=== PATIENT | male | born 1950 | race Caucasian/White ===

== ENCOUNTER 2019-12-29 09:14 | Outpatient (CLI) | payer OTHER, SELFPAY ==
--- NOTE | ~2019-12-29 | XR_ITS ---
EXAMINATION: XR shoulder LT min 2V DATE: 12/29/2019 09:49 INDICATION: Left shoulder pain TECHNIQUE: AP internally and externally rotated, AP oblique externally rotated and axillary views of the left shoulder were obtained. COMPARISON: None FINDINGS: Normal alignment. No fracture.Mild glenohumeral osteoarthritis with inferior predominant nonuniform joint space narrowing and small to moderate size marginal osteophytes along the posterior and inferio r glenoid. Mild acromioclavicular osteoarthritis. Soft tissues are unremarkable. Visualized portion o f the lungs are clear. IMPRESSION: Mild acromioclavicular and glenohumeral osteoarthritis. Reviewed, dictated and finalized at location A.
--- NOTE | ~2019-12-29 | XR_ITS ---
EXAMINATION: XR elbow LT min 3V DATE: 12/29/2019 09:49 INDICATION: Left elbow pain TECHNIQUE: Anteroposterior, two oblique and lateral views of the left elbow were obtained. COMPARISON: None. FINDINGS: Alignment is normal. No fracture or joint effusion. Mild nonuniform joint space narrowing along the u lnotrochlear articulation. Small marginal osteophytes along the radius and ulna. Small enthesophytes at the medial and lateral epicondyles. Soft tissues are unremarkable. IMPRESSION: 1. Mild osteoarthritis at the left elbow. No joint effusion or acute osseous abnormality. Reviewed, dictated and finalized at location A. IMPRESSION: 1. Mild osteoarthritis at the left elbow. No joint effusion or acute osseous ab normality.
== END 2019-12-29 09:15 | disposition home or self-care (01) ==
PROVIDERS: PCP Nurse Practitioner; Visit Provider Nurse Practitioner
DX: M25.522 Pain in left elbow (principal); M25.512 Pain in left shoulder; M19.012 Primary osteoarthritis, left shoulder; M19.022 Primary osteoarthritis, left elbow
CPT/HCPCS: 73030; 73080

== ENCOUNTER 2020-01-07 14:43 | Inpatient (IN) | payer OTHER, SELFPAY ==
--- NOTE | ~2020-01-07 | CT_ITS ---
EXAMINATION: CT abdomen pelvis wo/w con DATE: 01/07/2020 16:31 INDICATION: Hematuria. Dysuria. TECHNIQUE: Computed tomography (CT) of the abdomen and pelvis was performed without and with intraven ous contrast using a total of 130 mL Omnipaque-350 intravenous contrast with a double-bolus technique for simultaneous opacification of the renal parenchyma and renal collecting system. Automated exposu re control and iterative reconstruction technique were employed. The dose-length product was 2413.99 mGy-cm. COMPARISON: Chest CT 03/08/2017, abdomen MRI 04/26/17 FINDINGS: The visualized portions of the lung bases demonstrate widespread reticular opacities and honeycombing , consistent with chronic interstitial lung disease in a pattern of usual interstitial pneumonia (UIP ). Calcified right lung nodules are consistent with old granulomatous disease. No pleural effusion. T he heart size is normal. There are coronary artery calcifications. No pericardial effusion. There is a 1.8 x 1.9 cm right pericardial lymph node. Partially visualized is mediastinal lymphadenopathy with invasion of the superior vena cava. The liver and spleen are normal. There are gallstones in the gal lbladder, which is normal in size. The pancreas and adrenal glands are normal. There is a 3.1 cm hemo rrhagic cyst with thin peripheral calcifications in right kidney. There is a 5.1 cm lobulated mass wi th areas of calcification in right kidney that is indeterminate for contrast enhancement on this CT, but was nonenhancing on the prior MRI, likely benign. There is a 1.9 cm hemorrhagic cyst in left kidn ey. There are areas of hypoenhancement in left kidney, consistent with pyelonephritis. There is mild bilateral hydronephrosis and hydroureter. The ureters are not well opacified distally. The bladder is markedly distended. There is gas in the bladder lumen. No visible fistula. There is gas in the bladd er wall (emphysematous cystitis). The prostate is severely enlarged. There are no dilated loops of cole wel. The appendix is normal. There are no pathologically enlarged lymph nodes. There is no free intra peritoneal fluid. 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 There is mild thoracic sp ondylosis and severe lower lumbar spondylosis. IMPRESSION: 1. Partially visualized mediastinal lymphadenopathy suspicious for metastatic disease. Chest CT is re commended. I called this result to Dr. Hunter on 01/07/20 at 4:54 PM. 2. Markedly distended bladder with emphysematous cystitis. 3. Left-sided pyelonephritis. Mild bilateral hydronephrosis and hydroureter. 4. Severely enlarged prostate. 5. Severe chronic interstitial lung disease in a pattern of usual interstitial pneumonia (UIP). Reviewed, dictated and finalized at location A. NTEER FIREFIGHTER IMPRESSION: 1. Partially visualized mediastinal lymphadenopathy suspicious for metastatic d isease. Chest CT is recommended. I called this result to Dr. Hunter on 01/07/20 at 4:54 PM. 2. Markedly distended bladder with emphysematous cystitis. 3. Left-sided pyelonephritis. Mild bilateral hydronephrosis and hydroureter. 4. Severely enlarged prostate. 5. Severe chronic interstitial lung disease in a pattern of usual interstitial pneumonia (UIP).
--- NOTE | ~2020-01-07 | CT_ITS ---
EXAMINATION: CT chest w con DATE: 01/08/2020 09:39 INDICATION: Mediastinal lymphadenopathy seen on abdominal CT TECHNIQUE: Transaxial computed tomographic images of the chest were obtained after the administration of 75 cc of Omnipaque 350 intravenous contrast. The dose-length product (DLP) was 395.44 mGy-cm. Ite rative reconstruction was used. COMPARISON: 03/08/2017, 01/07/2020 FINDINGS: There is a 2.5 x 2.1 cm cavitary nodule of the right upper lobe. There is an 8.8 x 8.3 cm c onglomerate of right paratracheal lymph nodes which anteriorly displaces the superior vena cava and m edially displaces the trachea and aortic arch. Additional smaller prevascular, subcarinal, and right hilar lymphadenopathy is noted. Again noted are widespread subpleural reticular and groundglass opaci ties with multiple areas of associated honeycombing and calcified right lower lobe nodule is consiste nt with old granulomatous disease. There is no pleural effusion or pneumothorax. The heart size is no rmal. There is calcified coronary artery atherosclerosis. Lesions of the kidneys are described on the comparison CT. There is worsening of a T1 compression fracture since the comparison chest CT. IMPRESSION: 1. Cavitary right upper lobe nodule consistent with primary bronchogenic carcinoma. 2. Right hilar and mediastinal lymphadenopathy is consistent with metastatic disease. 3. Severe chronic interstitial lung disease in a pattern of usual interstitial pneumonia (UIP). Reviewed, dictated and finalized at location A. STMENT ADVISOR IMPRESSION: 1. Cavitary right upper lobe nodule consistent with primary bronchogenic carcin joce. 2. Right hilar and mediastinal lymphadenopathy is consistent with metastatic di sease. 3. Severe chronic interstitial lung disease in a pattern of usual interstitial pneumonia (UIP).
[2020-01-07 14:45] VITALS: BP 140/89; PULSE 134; RESP 16; TEMP 36.6; O2SAT 98
--- NOTE | 2020-01-07 15:05 | ECG_ITS ---
Measurements Intervals [place] Rate: 131 P: OK: 0 QRS: -28 QRSD: 143 T: -5 QT: 326 QTc: 481 Interpretive Statements ATRIAL FLUTTER/TACHYCARDIA WITH RAPID VENTRICULAR RESPONSE RIGHT BUNDLE BRANCH BLOCK ST-T WAVE ABNORMALITY IN ANTEROLATERAL LEADS- CONSIDER ISCHEMIA ABNORMAL ECG Electronically Signed On 01-07-2020 15:21:34 PRECISION LENS TECHNICIAN by Edu Lawson D.O.
--- NOTE | 2020-01-07 15:10 | ED.GENADULT ---
HPI - General Adult General Chief complaint: Urogenital-Male Stated complaint: hematuria Time Seen by Provider: 01/07/20 15:04 Source: patient History of Present Illness HPI narrative: Patient is a 69 y/o male complaining of moderate bloody urine for 2 days. There is no alleviating or exacerbating factor. He also has pain with urination. He denies any fever, chills or flank pain. He states that he is not on anticoagulation. Related Data Home Medications Medication Instructions Recorded Confirmed aspirin 81 mg tablet,delayed 81 mg PO DAILY 05/14/19 12/24/19 release multivitamin 1 tablet PO DAILY 05/14/19 12/24/19 terbinafine HCl mg 01/07/20 01/07/20 Allergies Allergy/AdvReac Type Severity Reaction Status Date / Time No Known Allergies Allergy Unknown Verified 07/08/17 08:25 varenicline Allergy Unknown unknown Verified 11/14/19 10:42 Review of Systems Constitutional: Constitutional: Denies chills, Denies fever(s), Denies headache(s) and Denies weakness Eyes: Eyes: Denies blurry vision ENT: Denies headache(s) and Denies neck pain Cardiovascular: Cardiovascular: Denies chest pain and Denies dyspnea Respiratory: Respiratory: Denies cough and Denies dyspnea Gastrointestinal: Gastrointestinal: Denies abdominal pain, Denies diarrhea, Denies nausea and Denies vomiting Genitourinary: Genitourinary: Reports hematuria and Reports dysuria Musculoskeletal: Musculoskeletal: Denies back pain and Denies neck pain Neurologic: Denies headache(s) and Denies weakness [facility] Past Medical History Medical History (Updated 01/07/20 @ 20:41 by Leanne Hunter MD) Cigarette nicotine dependence with nicotine-induced disorder HLD (hyperlipidemia) HTN (hypertension) Idiopathic pulmonary fibrosis ILD (interstitial lung disease) Type 2 diabetes mellitus Social History Social History Years smoked: 48 Smoking status: Current some day smoker Tobacco type: cigarettes Second hand tobacco smoke exposure: No Alcohol intake: unknown Substance use: never Gender identity (if verbalized by the patient): Male Exam Const: General: no acute distress and well developed Orientation/consciousness: oriented to person, oriented to place, oriented to time and patient oriented x3 HENMT: Head: normocephalic Ears: external ears normal General nose exam: Normal external nose present Eyes: General: appearance normal, both eyes and all related structures Conjunctivae: conjunctivae normal Neck: Neck: normal visual inspection and full ROM Chest: Chest palpation & inspection: normal inspection of the chest and no tenderness Resp: Effort & Inspection: normal respiratory effort Auscultation: clear to auscultation bilaterally Cardio: Rate: regular rate Rhythm: regular rhythm GI: GI Palp: No abdominal tenderness and Yes Soft to palpation Skin: General skin exam: normal color and turgor normal Neuro: General: oriented to person, oriented to place, oriented to time and patient oriented x3 Cognition (Neuro): normal cognition Extrem: General: normal to inspection, full ROM and no pedal edema Psych: Appearance: grossly normal Mental Status: mental status grossly normal Affect: normal affect Course Consultations Consultation #1: Discussed with Dr. Coello, who recommends Floyd placement and he will consult. Date: 01/07/20 Time: 18:04 Consultation #2: Discussed with JAMAR Ramirez, who agrees to admit. Date: 01/07/20 Time: 18:25 Vital Signs Vital signs: Vital Signs Temperature 36.6 C 01/07/20 14:45 Pulse Rate 134 H 01/07/20 14:45 Respiratory Rate 16 01/07/20 14:45 Blood Pressure 140/89 01/07/20 14:45 Pulse Oximetry 98 01/07/20 14:45 Temperature 36.7 C 01/07/20 18:40 Pulse Rate 110 H 01/07/20 18:40 Respiratory Rate 24 H 01/07/20 18:40 Blood Pressure 132/81 01/07/20 18:40 Pulse Oximetry 99 01/07/20 18:40 Medical Decision Making Vit
[2020-01-07 15:28] LABS: Basophils Percent Auto 0.2 % (0.2-1.2); Eosinophils Absolute Auto 0.1 K/mm3 (0-0.3); Eosinophils Percent Auto 0.3 % (0-4.4); Hematocrit 43.6 % (42.0-52.0); Hemoglobin 13.9 g/dL (14.0-18.0); Immature Granulocyte Absolute 0.08 K/mm3 (0.00-0.031); Immature Granulocyte Percent A 0.5 % (0-0.5); Lymphocytes Percent Auto 7.3 % (18.3-44.2); Mean Corpuscular HGB Conc 31.9 g/dl (32-36); Mean Corpuscular Hemoglobin 28.8 pg (26-34); Mean Corpuscular Volume 90.5 fl (80-100); Mean Platelet Volume 10.5 fl (7.4-10.4); Monocytes Absolute Auto 1.1 K/mm3 (0.1-0.6); Monocytes Percent Auto 6.5 % (2.6-8.5); Neutrophils Absolute Auto 13.9 K/mm3 (1.3-6.7); Neutrophils Percent Auto 85.2 % (45.5-73.1); Platelet Count Result 269 k/mm3 (150-375); Red Blood Count 4.82 M/mm3 (4.6-6.20); Red Cell Distribution Width 15.4 % (11.5-14.5); White Blood Count 16.4 K/mm3 (4.5-10.0)
[2020-01-07 15:40] LABS: Alanine Aminotransferase 19 U/L (4-50); Albumin Level 4.4 g/dL (3.5-5.1); Alkaline Phosphatase 96 U/L (38-126); Anion Gap 13 mmol/L (8-16); Aspartate Amino Transferase 23 U/L (17-59); Bilirubin,Total 0.8 mg/dL (0.2-1.3); Blood Urea Nitrogen 25 mg/dL (9-20); Calcium 10.2 mg/dL (8.4-10.2); Carbon Dioxide 27 mmol/L (22-30); Chloride 97 mmol/L (98-107); Estimated CRCL calculation 63 ml/min; Estimated Glomerular Filt Rate > 60; Glucose 266 mg/dL (75-110); Potassium 3.8 mmol/L (3.4-5.0); Sodium 137 mmol/L (137-145)
[2020-01-07 15:42] LABS: Add Urine Microscopic? YES; Appearance Urine Cloudy (Clear); Bilirubin Urine Negative (Negative); Blood Urine 3+ (Negative); Color Urine Yellow (Yellow); Glucose Urine UA Negative (Negative); Ketones Urine Trace mg/dL (Negative); Leukocyte Esterase Ur 1+ LEU/UL (Negative); Nitrate Urine Negative (Negative); Protein Urine 2+ mg/dL (Negative); RBC Urine >75 /hpf (0-2); Specific Grav Ur 1.023 (1.001-1.035); Squamous Epithelial Cell Urine Many /hpf (Few); Urobilinogen Urine Negative mg/dL (<2.0); WBC Clumps Urine Present /HPF; WBC Urine >75 /hpf
--- NOTE | 2020-01-07 15:45 | PC.NURSE ---
called chem for pt inr ptt 155
[2020-01-07 16:20] LABS: INR 1.1; Prothrombin Time 14.8 Seconds (11.1-14.7)
[2020-01-07 16:21] LABS: Partial Thromboplastin Time 36.4 SECONDS (22.3-36.8)
--- NOTE | 2020-01-07 16:35 | PC.NURSE ---
called lab to add on Trop Baseline [id number]
[2020-01-07 16:53] VITALS: BP 108/94; PULSE 109; RESP 20; O2SAT 99
--- NOTE | 2020-01-07 16:57 | ECG_ITS ---
Measurements Intervals [place] Rate: 120 P: 58 VT: 160 QRS: -25 QRSD: 145 T: 5 QT: 324 QTc: 458 Interpretive Statements SINUS OR ECTOPIC ATRIAL TACHYCARDIA RIGHT BUNDLE BRANCH BLOCK ST-T WAVE ABNORMALITY IN ANTEROLATERAL LEADS- CONSIDER ISCHEMIA BASELINE ARTIFACT- I ,II, AVR, AVL, AVF ABNORMAL ECG Electronically Signed On 01-08-2020 14:12:02 DIVERSIFIED CROPS FARMWORKER by Edu Lawson D.O.
[2020-01-07 16:59] LABS: Troponin I < 0.012 ng/mL (0.000-0.034)
[2020-01-07 18:08] LABS: Lactic Acid Reflex 5.1 mmol/L (0.7-2.1)
[2020-01-07 18:40] VITALS: BP 132/81; PULSE 110; RESP 24; TEMP 36.7; O2SAT 99
[2020-01-07 19:45] LABS: Troponin I < 0.012 ng/mL (0.000-0.034)
[2020-01-07 20:00] VITALS: BP 138/74; PULSE 106; RESP 20; TEMP 37.1; O2SAT 92; BMI 24.3
[2020-01-07 20:48] LABS: Reflex Lactic Acid Yes or No Add Lactic
--- NOTE | 2020-01-07 21:11 | ADMGEN ---
This patient, Andrea Neves Jean-Pierre, was admitted to 2 Medical Room 240-. Patient/family oriented to hospital policies and general routines including ID bracelet, bed and alarms, visiting hours, pain management, procedures, bathroom and other care routines, personal items, smoking policy, room service/diet, and visiting hours. Information on how to activate the Rapid Response Team has been discussed. Patient/Family are encouraged to report perceived risks to care and to ask questions if they do not understand what they are told or what they should do.
[2020-01-07 21:15] LABS: Lactic Acid 1.6 mmol/L (0.7-2.1)
[2020-01-07] MEDS: SODIUM CHLORIDE 0.9% IV 1,000 ML 100 ML IV CONT (22:03)
[2020-01-07 22:14] VITALS: PULSE 106
[2020-01-08] VITALS (12 sets, daily range): BP systolic 111–135; BP diastolic 52–76; PULSE 86–109; RESP 16–18; TEMP 36.1–36.9; O2SAT 93–97; BMI 24.3
--- NOTE | 2020-01-08 | ECHO_ITS ---
Patient Info Name: Andrea Morejon Age: 69 years : 1950 Gender: Male Ht: 70 in Wt: 170 lbs BSA: 1.96 m2 HR: 110 bpm BP: 130 / 66 mmHg Heart Rhythm: Sinus Arrhythmia Technical Quality: Good Exam Date: 01/08/2020 11:12 AM Exam Location: [facility] Patient Status: Inpatient Admit Date: 01/07/2020 Staff Ordering Physician: Gail Rivera DO Salt Machine Operator: Marcial James RDCS Attending Provider: Candelario Yung MD Referring Physician: Nicole REINA; Exam Type: CA echo doppler color flow Study Info Indications I48.0 - Paroxysmal atrial fibrillation Complete two-dimensional, color flow and Doppler transthoracic echocardiogram is performed. History/Risk Factors Sepsis; Afib, HTN, Dm2. Summary 1. Complete two-dimensional, color flow and Doppler transthoracic echocardiogram is performed. 2. Left ventricular chamber dimension is normal. 3. Left ventricular systolic function is normal, estimated at 55-60%. 4. There is mildly increased left ventricular wall thickness. 5. The left ventricular diastolic function is grade I diastolic dysfunction. 6. Left atrial chamber dimension is mildly enlarged. 7. There is trace tricuspid valve regurgitation. 8. Mild pulmonary hypertension, estimated pulmonary arterial systolic pressure is 41 mmHg. 9. Small atheroma in anterior and posterior aortic root. Left Ventricle Tissue doppler is not performed. Left ventricular chamber dimension is normal. Left ventricular systolic function is normal, estimated at 55-60%. There is mildly increased left ventricular wall thickness. The left ventricular diastolic function is grade I diastolic dysfunction. Right Ventricle Right ventricular chamber dimension is normal. Right ventricular systolic function is normal. Left Atria Left atrial chamber dimension is mildly enlarged. Right Atria Right atrial chamber dimension is normal. Aortic Valve The aortic valve is trileaflet. There is no aortic valve stenosis. There is no aortic valve regurgitation. Pulmonic Valve There is no pulmonic regurgitation. Mitral Valve There is no mitral valve stenosis. There is no mitral valve regurgitation. Tricuspid Valve There is trace tricuspid valve regurgitation. Mild pulmonary hypertension, estimated pulmonary arterial systolic pressure is 41 mmHg. Pericardium/Pleural There is no pericardial effusion. Inferior Vena Cava Normal inferior vena cava with >50% collapse upon inspiration consistent with normal right atrial pressure, 5 mmHg. Aorta Small atheroma in anterior and posterior aortic root. The aortic root size at the sinus of Valsalva is normal. Left Ventricular Outflow Tract Name Value Normal LVOT 2D LVOT Diameter 2.0 cm LVOT Doppler LVOT Peak Gradient 5 mmHg LVOT Mean Gradient 3 mmHg LVOT VTI 20 cm LVOT VTI/AV VTI Ratio 0.7 LVOT Stroke Volume 64 ml LVOT CO 6.1 l/min LVOT CI
--- NOTE | 2020-01-08 04:51 | PM.IMHP ---
H&P: HPI History of Present Illness Date/Time: 01/08/20 04:51 Chief complaint: pyelonephritis, sepsis Narrative: Andrea Neves Jean-Pierre is a 69 year old male with a past medical history of type 2 diabetes mellitus, hypertension and chronic tobacco abuse who presented to the ER due to hematuria. He developed shoulder pain and left elbow pain on 12/21/2019. He had tried Aleve, Biofreeze and icy hot at home without relief in symptoms. He had x-rays performed by his primary care provider which demonstrated arthritic changes. He was discharged home with a Medrol Dosepak with no relief in symptoms. He started having blood-tinged urine after initiation of steroid therapy and he thought that the urine changes was due to steroids. However he became more concerned with urine changes when he developed dysuria and increasing blood in his urine. He called his primary care provider who directed to come to the ER for evaluation. The patient reports that he has had increased urinary urgency and frequency with dribbling of urine since he has developed the increased hematuria. He denies any fevers, chills, nausea, vomiting or abdominal pain. He reports that he has been trying to watch his diet and lose weight due to diabetes. He has lost 2 or 3 lb this past week due to decreased appetite. He denies any cough, congestion or shortness of breath After starting the tramadol and Flexeril he developed increasing blood in his urine and dysuria. He reports that the pain in his shoulder and elbow is better if he leans his head to the right and turns his head to the right. Movement makes the pain worse. Review of Systems Review of Systems: Narrative: 12 systems were reviewed with pertinent positives and negatives per HPI. Except as documented in the HPI, all other systems were reviewed and are negative. [facility] Past Medical History Medical History Cigarette nicotine dependence with nicotine-induced disorder HLD (hyperlipidemia) HTN (hypertension) Idiopathic pulmonary fibrosis ILD (interstitial lung disease) Type 2 diabetes mellitus Surgical History Surgical History Amputation of left index finger History of colonoscopy with polypectomy 2018 History of lumbar surgery Family History Family History Sibling Diabetes mellitus Sibling Cerebrovascular accident Sibling Cancer Social History Social History (Updated 01/08/20 @ 09:33 by Gail Rivera DO) Social History: He has smoked up to 2 packs per day but over recent years has cut back to about 0.5 packs per day currently. He started smoking at the age of 19. He lives at home with his of over 20 years. He is independent in activities of daily living. Primary care provider: Nemo Abarca [employer]ILITY [employer] Code status: Full code Smoking packs per day: 0.75 Smoking cigarettes per day: 15.0 Years smoked: 49 Smoking pack-years: 36.75 Smoking status: Current every day smoker Tobacco type: cigarettes Second hand tobacco smoke exposure: No Alcohol intake: former Substance use: never Gender identity (if verbalized by the patient): Male Spiritual care concerns: No Meds Home Medications and Allergies Home Medications Medication Instructions Recorded Confirmed Type aspirin 81 mg tablet,delayed 81 mg PO DAILY 05/14/19 01/07/20 History release glimepiride 4 mg tablet 6 mg PO QAM 90 Days #135 tablet 05/14/19 01/07/20 Rx lisinopril 10 mg tablet 10 mg PO DAILY #90 tablet 05/14/19 01/07/20 Rx multivitamin 1 tablet PO DAILY 05/14/19 01/07/20 History simvastatin 40 mg tablet 40 mg PO DAILY #90 tablet 05/14/19 01/07/20 Rx metformin 1,000 mg tablet 1,000 mg PO BID #180 tablet 11/27/19 01/07/20 Rx Allergies Allergy/AdvReac Type Severity Reaction Status Date / Time varenicline Allergy Unknown unknown Verified
[2020-01-08 05:55] LABS: Hematocrit 34.7 % (42.0-52.0); Hemoglobin 11.1 g/dL (14.0-18.0); Mean Corpuscular Hemoglobin 28.2 pg (26-34); Mean Corpuscular Volume 88.1 fl (80-100); Mean Platelet Volume 10.5 fl (7.4-10.4); Platelet Count Result 179 k/mm3 (150-375); Red Blood Count 3.94 M/mm3 (4.6-6.20); Red Cell Distribution Width 15.5 % (11.5-14.5)
[2020-01-08 06:00] LABS: Anion Gap 8 mmol/L (8-16); Blood Urea Nitrogen 18 mg/dL (9-20); Calcium 8.7 mg/dL (8.4-10.2); Carbon Dioxide 27 mmol/L (22-30); Chloride 102 mmol/L (98-107); Estimated CRCL calculation 101 ml/min; Estimated Glomerular Filt Rate > 60; Glucose 150 mg/dL (75-110); Potassium 3.4 mmol/L (3.4-5.0); Sodium 137 mmol/L (137-145)
[2020-01-08] MEDS: SODIUM CHLORIDE 0.9% IV 1,000 ML 100 ML IV CONT ×2 (07:59→21:16)
[2020-01-08 08:09] LABS: Glucose Point of Care 147 (65-105)
--- NOTE | 2020-01-08 08:49 | WPDURCON ---
Assessment and Plan Assessment and plan (1) Severe sepsis: Code(s): A41.9 - Sepsis, unspecified organism; R65.20 - Severe sepsis without septic shock Status: Acute (2) Emphysematous cystitis: Code(s): N30.80 - Other cystitis without hematuria Status: Acute (3) BPH (benign prostatic hyperplasia): Code(s): N40.0 - Benign prostatic hyperplasia without lower urinary tract symptoms Status: Acute Assessment and Plan: Start Flomax and Finasteride. Will obtain PSA records from PCP to determine course of action with severe BPH. (4) Pyelonephritis of left kidney: Code(s): N12 - Tubulo-interstitial nephritis, not specified as acute or chronic Status: Acute Assessment and Plan: Recommmend restarting Ceftriaxone and tailoring antibiotics to culture results. Secondary to incomplete bladder emptying. (5) Urinary retention: Code(s): R33.9 - Retention of urine, unspecified Status: Acute Assessment and Plan: Keep chacko in until prior to discharge, then may do a voiding trial before discharging home. (6) Gross hematuria: Code(s): R31.0 - Gross hematuria Status: Acute Assessment and Plan: Likely secondary to infection and BPH, will recommend an outpatient cystoscopy once infection has cleared in a few weeks with Dr. Coello. Upper tracts are otherwise normal despite pyelonephritis/cysts. Urology Consult Note HPI Date Seen: 01/08/20 Requesting Physician: Collins Yung MD Primary Care Provider: Nemo Abarca NP Consult Narrative Narrative: Andrea Morejon is a 69 year old male who presented to the ER yesterday with worsening dysuria and gross hematuria that developed 4 days ago. This is a new problem for him. He denies fever, chills, nausea, vomiting, flank pain, abdominal pain, hesitancy or straining to urinate. He had a chacko catheter placed, which is draining bloody, cloudy urine. He denies previous history of BPH or medications for BPH. He is unsure if he has ever had a PSA or LAILA with his PCP, although he sees them every six months. WBC is slightly elevated at 11.0, creatinine is 0.60 and UA is suspicious of a UTI. Urine and Blood cultures are pending at this time. His CT abdomen/pelvis is concerning d/t many findings especially mediastinal lymphadenopathy, left sided pyelonephritis, bladder distension with cystitis, mild bilateral hydronephrosis and severe BPH. He also has two renal cysts noted that were not hypoenhancing on MRI previously. Review of Systems Cardiovascular: Cardiovascular: Denies chest pain Respiratory: Respiratory: Reports no additional respiratory complaints Gastrointestinal: Gastrointestinal: Denies abdominal pain, Denies nausea and Denies vomiting Genitourinary: Genitourinary: Reports hematuria, Reports dysuria, Denies flank pain, Denies urinary frequency, Denies urinary hesitancy and Denies urinary urgency [facility] Past Medical History Medical History Cigarette nicotine dependence with nicotine-induced disorder HLD (hyperlipidemia) HTN (hypertension) Idiopathic pulmonary fibrosis ILD (interstitial lung disease) Type 2 diabetes mellitus Surgical History Surgical History Amputation of left index finger History of colonoscopy with polypectomy 2018 History of lumbar surgery Family History Family History Sibling Diabetes mellitus Sibling Cerebrovascular accident Sibling Cancer Social History Social History Smoking packs per day: 0.75 Smoking cigarettes per day: 15.0 Years smoked: 49 Smoking pack-years: 36.75 Smoking status: Current every day smoker Tobacco type: cigarettes Second hand tobacco smoke exposure: No Alcohol intake: former Substance use: jesus
[2020-01-08] MEDS: GLIMEPIRIDE 2 MG TABLET 6 MG PO (09:57)
[2020-01-08] MEDS: metFORMIN HCL 500 MG TABLET 1000 MG PO ×2 (09:57→16:38)
[2020-01-08] MEDS: ASPIRIN 81 MG ENTERIC TABLET PO (09:57)
[2020-01-08] MEDS: lisinopriL 10 MG TABLET PO (09:57)
[2020-01-08] MEDS: SIMVASTATIN 20 MG TABLET 40 MG PO (09:58)
[2020-01-08] MEDS: MULTIVITAMINS THERAPEUTIC TAB (*BKC) 1 TABLET PO (09:58)
[2020-01-08] MEDS: NICOTINE (*PBKC) 14 MG PATCH 1 PATCH TRANSDERM (10:35)
[2020-01-08] MEDS: FINASTERIDE 5 MG TABLET PO (10:35)
[2020-01-08] MEDS: TAMSULOSIN HCL 0.4 MG CAPSULE PO (10:35)
[2020-01-08 11:37] LABS: Glucose Point of Care 179 (65-105)
[2020-01-08 16:32] LABS: Glucose Point of Care 130 (65-105)
[2020-01-08] MEDS: diphenhydrAMINE HCl CAP 25 MG CAPSULE 50 MG PO (21:14)
[2020-01-08 21:38] LABS: Glucose Point of Care 127 (65-105)
[2020-01-09] VITALS (11 sets, daily range): BP systolic 127–138; BP diastolic 69–80; PULSE 80–107; RESP 14–22; TEMP 36.6–37.2; O2SAT 90–97
[2020-01-09] MEDS: SODIUM CHLORIDE 0.9% IV 1,000 ML 100 ML IV CONT (07:15)
[2020-01-09 07:26] LABS: Glucose Point of Care 104 (65-105)
[2020-01-09] MEDS: SIMVASTATIN 20 MG TABLET 40 MG PO (08:08)
[2020-01-09] MEDS: ASPIRIN 81 MG ENTERIC TABLET PO (08:08)
[2020-01-09] MEDS: metFORMIN HCL 500 MG TABLET 1000 MG PO ×2 (08:08→16:42)
[2020-01-09] MEDS: FINASTERIDE 5 MG TABLET PO (08:09)
[2020-01-09] MEDS: GLIMEPIRIDE 2 MG TABLET 6 MG PO (08:09)
[2020-01-09] MEDS: MULTIVITAMINS THERAPEUTIC TAB (*BKC) 1 TABLET PO (08:09)
[2020-01-09] MEDS: TAMSULOSIN HCL 0.4 MG CAPSULE PO (08:09)
[2020-01-09] MEDS: NICOTINE (*PBKC) 14 MG PATCH 1 PATCH TRANSDERM (08:09)
[2020-01-09] MEDS: lisinopriL 10 MG TABLET PO (08:09)
--- NOTE | 2020-01-09 08:16 | PM.IMPN ---
Progress Note: A&P Assessment and Plan (1) Severe sepsis: Code(s): A41.9 - Sepsis, unspecified organism; R65.20 - Severe sepsis without septic shock Status: Acute Assessment and Plan: Secondary to UTI/pyelonephritis. Patient has been started on empiric antibiotic therapy with Rocephin. Await blood and urine culture. (2) Emphysematous cystitis: Code(s): N30.80 - Other cystitis without hematuria Status: Acute Assessment and Plan: Urology has been consulted. (3) Abnormal CT of the abdomen: Code(s): R93.5 - Abnormal findings on diagnostic imaging of other abdominal regions, including retroperitoneum Status: Acute Assessment and Plan: The patient has CT findings concerning for malignancy with incidental finding of lung masses noted on CT of the abdomen and pelvis. And CT chest Pulmology consult made Patient notified (4) BPH (benign prostatic hyperplasia): Code(s): N40.0 - Benign prostatic hyperplasia without lower urinary tract symptoms Status: Acute Assessment and Plan: Follow Urology recommendations (5) Atrial fibrillation with rapid ventricular response: Code(s): I48.91 - Unspecified atrial fibrillation Status: Acute Assessment and Plan: The patient has been told that he has a history of irregular heart rate but no documented history of atrial fibrillation. (6) Shoulder pain, left: Code(s): M25.512 - Pain in left shoulder Status: Acute Assessment and Plan: Given CT findings of possible malignancy I am concerned about nerve root compression due to mass for cervical foraminal stenosis. Subjective Date/time seen: 01/09/20 08:16 Interval history: Andrea Neves Jean-Pierre is a 69 year old male with a past medical history of type 2 diabetes mellitus, hypertension and chronic tobacco abuse who presented to the ER due to hematuria. Pt has some compliants of dysuria no flank pain or hematuria today. PT seen by urology follow recommendations. PT had CT chest and ct abdo and pelvis unfortunately, CT chest shows Cavitary right upper lobe nodule consistent with primary bronchogenic carcinoma. 2. Right hilar and mediastinal lymphadenopathy is consistent with metastatic disease. 3. Severe chronic interstitial lung disease in a pattern of usual interstitial pneumonia (UIP). Pt was made aware of this. Urgent pulmology consult made. Pt denies any respiratory compliants Review of Systems Review of Systems: All systems reviewed & are unremarkable except as noted in HPI and below Exam Const: General: cooperative and healthy appearing; No in distress Nutritional Appearance: overweight Orientation/consciousness: oriented to person HENMT: Head: normal to inspection Resp: Effort & Inspection: no respiratory distress Auscultation: no rhonchi and no wheezes Cardio: Rate: regular rate Rhythm: regular rhythm GI: Inspection: normal to inspection GI Palp: No abdominal tenderness, No Guarding due to palpation present (GI) and No Hepatomegaly present Auscultation: normal bowel sounds Neuro: General: oriented to person Objective Data Vital Signs Vital Signs: Vital Signs - 24 hr 01/08/20 10:47 01/08/20 12:00 01/08/20 14:00 Temperature 36.2 C L 36.1 C L Pulse Rate 90 95 86 Respiratory Rate 18 18 Blood Pressure 129/52 L 111/54 L Pulse Oximetry 96 96 01/08/20 16:00 01/08/20 18:00 01/08/20 20:00 Temperature 36.3 C L Pulse Rate 96 105 H 100 Respiratory Rate 16 Blood Pressure 127/76 Pulse Oximetry 96 01/08/20 22:00 01/09/20 00:00 01/09/20 02:00 Temperature 36.9 C 36.6 C Pulse Rate 97 100 93 Respiratory Rate 16 14 Blood Pressure 114/62 132/71 Pulse Oximetry 93 92 01/09/20 04:00 01/09/20 06:00 Temperature 36.6 C Pulse Rate 92 96 Respiratory Rate 16 Blood Pressure 130/70 Pulse Oximetry 90 Intake/Output Intake/Output: Intake & Output 01/06/20 01/07/20 01/08/20 11
[2020-01-09 11:36] LABS: Glucose Point of Care 174 (65-105)
--- NOTE | 2020-01-09 14:42 | PC.NURSE ---
On 01/09/20, the student, Lewis Jackson, provided care and completed [facility] documentation on this patient. I have reviewed the student's documentation and agree with the findings.
--- NOTE | 2020-01-09 15:14 | PM.CNPUL ---
Assessment and Plan Assessment and plan (1) Lung mass: Code(s): R91.8 - Other nonspecific abnormal finding of lung field Status: Acute Assessment and Plan: CT chest Jan 07 showed a 2.5 x 2.1 cm cavitary nodule of the right upper lobe with 8.8 x 8.3 cm conglomerate of right paratracheal lymph nodes which anteriorly displaces the superior vena cava and medially displaces the trachea and aortic arch. Chest CT from Mar 08, 2017 shows similar findings however there was no right upper lobe mass. He had findings consistent with fibrosis including honeycombing. He needs a PET scan, PFT and 6 minute walk. These are out-patient procedures, and can help direct the next diagnostic choice, probably bronchoscopy with endobronchial biopsy. (2) Idiopathic pulmonary fibrosis: Code(s): J84.112 - Idiopathic pulmonary fibrosis Status: Chronic Assessment and Plan: This was seen on Jan [address] Jan 07 with crackles on exam. He has a similar pattern on chest CT 03/08/2017. He has hematuria, proteinuria with high protein in his urine on outside tests from [facility]. Will order MARJORIE cascade, hypersensitivity pneumonitis panel, ANCA and anti-GBM testing for concerns regarding Goodpasture's disease, which could explain his hematuria, proteinuria, weight loss. He does not have extra-pulmonary symptoms that can be seen with ILD such as generalized musculoskeletal pain, weakness, fatigue, or fever. He has joint pains L shoulder and elbow. Pulmonary manifestations occasionally precede the more typical systemic manifestations by months or years (especially in rheumatoid arthritis, systemic lupus erythematosus, and polymyositis-dermatomyositis. (3) Gross hematuria: Code(s): R31.0 - Gross hematuria Status: Acute Assessment and Plan: He presented with gross hematuria, proteinuria and dysuria, has abnormal chest CT findings with pulmonary fibrosis. He has not had hemoptysis. I will send anti-GBM antibodies, ANCA antibodies and an MARJORIE cascade. He needs to be evaluated for Goodpasture's disease. Although his creatinine is normal, his UA shows red blood cells, white blood cells and protein. The proteinuria was present on older labs from [facility]. He has had weight loss, shortness of breath and joint pains in his the left shoulder and elbow. Additional Plan The fastest way to get a PET scan is to have his primary care provider order this. I discussed this with Nemo Torres NP today. He needs a PET scan, PFT, 6 min walk as an out-patient. If the main finding on the PET is the RUL mass and mediastinal lymphadenopathy, a bronchoscopy with EBUS would be the best option. His chest CT Mar 08, 2017 showed mediastinal lymphadenopathy without a right upper lobe mass, so the large lymph nodes are not new. If he has other areas that light up on PET, the choice for a place to biopsy may be different. I have requested his images to be placed on a disc for him to take with him if he is referred elsewhere. I do not perform this type of bronchoscopy, and would refer to a medication tech at another facility. History of Present Illness History of Present Illness Consult date: 01/09/20 Requesting physician: Belgica Mitchell MD Reason for consult: lung mass Chief complaint: pyelonephritis, sepsis Narrative: cc: Abnormal chest CT with right lung mass, chronic ILD Andrea Jean-Pierre is a 69-year-old man with a 50 year history of smoking, chronic ILD listed as a chronic condition although he says he has no known pulmonary disease, denies COPD and does not use inhalers. His Jazz is at the bedside. He was admitted after Nov 2 after 2 days of hematuria with dysuria, was diagnosed with emphysematous pyelonephritis and a urinary tract infection. He had elevated la
[2020-01-09 16:26] LABS: Glucose Point of Care 107 (65-105)
[2020-01-09] MEDS: LIDOCAINE 5% PATCH 1 PATCH TRANSDERM (16:40)
[2020-01-09] MEDS: diphenhydrAMINE HCl CAP 25 MG CAPSULE 50 MG PO (20:53)
[2020-01-09 21:50] LABS: Glucose Point of Care 148 (65-105)
[2020-01-10] VITALS (7 sets, daily range): BP systolic 134–137; BP diastolic 57–83; PULSE 96–152; RESP 16–18; TEMP 36.7–36.8; O2SAT 97
[2020-01-10] MEDS: SODIUM CHLORIDE 0.9% IV 1,000 ML 100 ML IV CONT (04:08)
[2020-01-10] MEDS: NICOTINE (*PBKC) 14 MG PATCH 1 PATCH TRANSDERM (08:00)
[2020-01-10] MEDS: LIDOCAINE 5% PATCH 1 PATCH TRANSDERM (08:00)
[2020-01-10] MEDS: TAMSULOSIN HCL 0.4 MG CAPSULE PO (08:01)
[2020-01-10] MEDS: FINASTERIDE 5 MG TABLET PO (08:01)
[2020-01-10] MEDS: GLIMEPIRIDE 2 MG TABLET 6 MG PO (08:01)
[2020-01-10] MEDS: ASPIRIN 81 MG ENTERIC TABLET PO (08:01)
[2020-01-10] MEDS: MULTIVITAMINS THERAPEUTIC TAB (*BKC) 1 TABLET PO (08:01)
[2020-01-10] MEDS: SIMVASTATIN 20 MG TABLET 40 MG PO (08:01)
[2020-01-10] MEDS: lisinopriL 10 MG TABLET PO (08:01)
[2020-01-10] MEDS: metFORMIN HCL 500 MG TABLET 1000 MG PO (08:01)
[2020-01-10 08:50] LABS: Glucose Point of Care 142 (65-105)
--- NOTE | 2020-01-10 09:22 | PM.DS ---
DS: Admitting Diagnosis Admitting Diagnosis Admitting Diagnosis: pyelonephritis, sepsis DS: Discharge Diagnosis Discharge Diagnosis (1) Severe sepsis: Code(s): A41.9 - Sepsis, unspecified organism; R65.20 - Severe sepsis without septic shock Status: Acute Assessment and Plan: Secondary to UTI/pyelonephritis. Patient has been started on empiric antibiotic therapy with Rocephin. BC and UC is positive for EColi Pt discharged on ciprofloxacin 500mg po bid for 14 days (2) Emphysematous cystitis: Code(s): N30.80 - Other cystitis without hematuria Status: Acute Assessment and Plan: Urology recommendations taken Urology has been consulted. (3) Abnormal CT of the abdomen: Code(s): R93.5 - Abnormal findings on diagnostic imaging of other abdominal regions, including retroperitoneum Status: Acute Assessment and Plan: The patient has CT findings concerning for malignancy with incidental finding of lung masses noted on CT of the abdomen and pelvis. And CT chest Pulmology consult made Pulmology recommends PET scan, PFTS and six minute walk PET scan to be ordered by his PCP Pt to follow up with DR Perez for PFTs and six minute walk and referral to tertiary pulmologist Pt to discuss blood tests with DR Perez during appointment (4) BPH (benign prostatic hyperplasia): Code(s): N40.0 - Benign prostatic hyperplasia without lower urinary tract symptoms Status: Acute Assessment and Plan: Follow Urology recommendations of tamsulosin and finasteride (5) Atrial fibrillation with rapid ventricular response: Code(s): I48.91 - Unspecified atrial fibrillation Status: Acute Assessment and Plan: The patient has been told that he has a history of irregular heart rate but no documented history of atrial fibrillation. (6) Shoulder pain, left: Code(s): M25.512 - Pain in left shoulder Status: Acute Assessment and Plan: Pt having shoulder pain hospitalist has concerns of nerve root compression due to mass for cervical foraminal stenosis. CT neck not ordered, if shoulder pain persists pt will need CT neck. DS: Summary Time Spent with Patient Time attestation: Total time spent providing and/or coordinating discharge services:40 minutes on day of discharge Exam Const: General: cooperative and healthy appearing; No in distress Nutritional Appearance: overweight Orientation/consciousness: oriented to person HENMT: Head: normal to inspection Resp: Effort & Inspection: no respiratory distress Auscultation: no rhonchi and no wheezes Cardio: Rate: regular rate Rhythm: regular rhythm GI: Inspection: normal to inspection Auscultation: normal bowel sounds Neuro: General: oriented to person DS: Data Data Completed and Pending Labs on day of discharge: Labs from last 24 hours 01/10/20 01/10/20 01/09/20 07:15 05:28 20:14 POC Capillary Glucose 142 H 148 H MARJORIE Scrn Qualitative Pending MARJORIE Ogle Interp Pending Glomerular Base Memb Ab Pending 01/09/20 01/09/20 16:19 11:29 POC Capillary Glucose 107 174 H MARJORIE Scrn Qualitative MARJORIE Ogle Interp Glomerular Base Memb Ab Preliminary micro results at discharge 01/07/20 17:34 Blood Culture - Preliminary Blood Escherichia Coli 01/07/20 17:34 Blood Culture - Preliminary Blood Discharge Plan Discharge Attending physician on discharge: KAVON Consulting providers: Denilson Coello ; Alina Perez Discharging Clinician: Belgica Mitchell Anticipated Discharge Date/Time: 01/10/20 13:00 Patient Disposition: Home, Self-Care Activity: as tolerated Diet: diabetic Discharge Instructions: Urology Instructions: Call office to schedule cystoscopy with DR. Coello in 2-3 weeks. Continue Flomax and Finasteride. Continue Ciprofloxacin for 14 days Voiding trail in office. OK to go trevor
[2020-01-13 07:43] LABS: ANA Cascade Screen Negative (Negative)
[2020-01-16 07:44] LABS: Anti Glomerular Basement Memb <1.0 AI (<1.0)
== END 2020-01-10 10:40 | disposition home or self-care (01) | DRG 872 ==
LOC: ANHED 18:29 → ANH2MED 20:41
PROVIDERS: Internal Medicine; Internal Medicine Critical Care Medicine; Admitting Provider Internal Medicine; Emergency Provider Emergency Medicine; PCP Nurse Practitioner; Visit Provider Family Medicine
DX: A41.51 Sepsis due to Escherichia coli [E. coli] (principal); N10 Acute pyelonephritis; R65.20 Severe sepsis without septic shock; N30.80 Other cystitis without hematuria; J84.112 Idiopathic pulmonary fibrosis; I10 Essential (primary) hypertension; N40.0 Benign prostatic hyperplasia without lower urinary tract symptoms; R91.8 Other nonspecific abnormal finding of lung field; E11.9 Type 2 diabetes mellitus without complications; R31.0 Gross hematuria; I48.91 Unspecified atrial fibrillation; M25.512 Pain in left shoulder; F17.210 Nicotine dependence, cigarettes, uncomplicated; E78.5 Hyperlipidemia, unspecified; R33.9 Retention of urine, unspecified; R93.5 Abnormal findings on diagnostic imaging of other abdominal regions, including retroperitoneum
CPT/HCPCS: 36415; 51702; 71260; 74178; 80048; 80053; 81001; 83520; 83605; 84484; 85025; 85027; 85610; 85730; 86038; 87040; 87077; 87086; 87088; 87186; 93005; 93306; 96365; 99285; A9270; J0696; J7030; J7120; Q9967

== ENCOUNTER 2020-01-24 10:34 | Outpatient (CLI) | payer OTHER, SELFPAY ==
--- NOTE | ~2020-01-24 | PE_ITS ---
EXAMINATION: PET skull to mid thigh DATE: 01/24/2020 13:02 INDICATION: Lung nodule. TECHNIQUE: Blood glucose level was 88 mg/dL. 9.517 mCi of 18-fluorodeoxyglucose (18-FDG) was administ ered i.v. Low dose computed tomography (CT) images were acquired from the base of the brain to the pr oximal thighs for attenuation correction and anatomic localization. Automated exposure control was em ployed. Dose-length product (DLP) was 891 mGy-cm. Positron emission tomography (PET) images were acqu ired in the same distribution. COMPARISON: Chest CT 01/08/2020, 03/08/17, CT abdomen and pelvis 01/07/2020, abdomen MRI 04/26/17 FINDINGS: Head/neck: There is increased activity in the paraspinal muscles and glottis without CT correlate, li allen physiologic. There are no pathologically enlarged lymph nodes. Chest: There is mild emphysema. There are widespread reticular opacities in the lungs with areas of h oneycombing involving all lobes. In the right lung upper lobe, there is a 2.0 cm cavitary nodule with maximum SUV of 11.1. A calcified right lung nodule is consistent with old granulomatous disease. No pleural effusion. There is bulky mediastinal lymphadenopathy with increased activity, consistent with metastatic disease. A right paratracheal kelley mass measures 10.3 x 7.2 cm. Cardiomegaly is noted. T here are coronary artery calcifications. No pericardial effusion. There is ectasia of ascending aorta measuring 4.4 cm. There is a pathologic burst fracture of T1 with fracture of the left posterior stepan ments. The increased activity. Abdomen/pelvis/proximal thighs: There are greater than 10 masses with increased activity scattered in the liver measuring up to 2.1 cm, most of which are not visible on the noncontrast CT. There is a ga llstone in the gallbladder, which is normal in size. The spleen, pancreas, and adrenal glands are nor mal. There are cysts in the kidneys. There is a 5.1 cm lobulated mass with areas of calcification in right kidney without increased activity that was nonenhancing of the prior MRI, likely benign. There is diffuse wall thickening of the prostate bladder, likely secondary to chronic outlet obstruction fr om the severely enlarged prostate. There is an umbilical hernia containing fat. There are no patholog ically enlarged lymph nodes. There is no free intraperitoneal fluid. IMPRESSION: 1. 2.0 cm nodule in right lung upper lobe with increased activity, consistent with primary bronchogen ic carcinoma. 2. Mediastinal lymphadenopathy and liver masses with increased activity, consistent with metastatic d isease. Consider ultrasound-guided core needle biopsy of a liver mass for diagnosis. 3. Subacute T1 pathologic burst fracture, consistent with metastatic disease. 4. Emphysema and chronic interstitial lung disease in a pattern of usual interstitial pneumonia (UIP) . Reviewed, dictated and finalized at [facility]. SCIENTIST IMPRESSION: 1. 2.0 cm nodule in right lung upper lobe with increased activity, consistent w ith primary bronchogenic carcinoma. 2. Mediastinal lymphadenopathy and liver masses with increased activity, consis tent with metastatic disease. Consider ultrasound-guided core needle biopsy of a liver mass for diagnosis. 3. Subacute T1 pathologic burst fracture, consistent with metastatic disease. 4. Emphysema and chronic interstitial lung disease in a pattern of usual inters titial pneumonia (UIP).
[2020-01-24 11:20] LABS: Glucose Point of Care 81 (65-105)
== END 2020-01-24 10:35 | disposition home or self-care (01) ==
PROVIDERS: PCP Nurse Practitioner; Visit Provider Nurse Practitioner
DX: R91.8 Other nonspecific abnormal finding of lung field (principal); R93.5 Abnormal findings on diagnostic imaging of other abdominal regions, including retroperitoneum; J43.9 Emphysema, unspecified
CPT/HCPCS: 78815; A9552

== ENCOUNTER 2020-02-02 10:23 | Emergency (ER) | payer OTHER, SELFPAY ==
[2020-02-02] VITALS (8 sets, daily range): BP systolic 107–145; BP diastolic 58–76; PULSE 103–107; RESP 20–22; TEMP 36; O2SAT 88–99
--- NOTE | ~2020-02-02 | CT_ITS ---
EXAMINATION: CT cervical spine wo con DATE: 02/02/2020 11:32 INDICATION: Neck pain and left arm pain TECHNIQUE: Computed tomography (CT) of the cervical spine was performed without intravenous contrast. Automated exposure control and iterative reconstruction technique were employed. Exam dose: 465.80 mGy-cm total exam DLP. COMPARISON: None FINDINGS: There is straightening of the cervical spine. C1 and C2 are normally aligned and the odontoid process is intact. No fracture or dislocation or locked facet of the cervical spine. There is however a prominent burst fracture deformity at T1, recent, with suggestion of lytic compone nt suggesting pathologic fracture. There are extensive degenerative changes including severe degenerative disc disease in particular at C5-6 and C6-7. There is degenerative change of the apophyseal joints throughout the cervical spine an d prominent uncovertebral joint spurring at C5-6 and C6-7. Prominent emphysematous changes are noted in the included upper lungs. Prominent right superior mediastinal lymphadenopathy is noted. This is likely secondary to the report ed cavitary right upper lobe nodule consistent with primary bronchogenic carcinoma described on 2019 CT chest examination. IMPRESSION: Prominent likely recent burst fracture of T1, very possibly pathologic, with suggestion of lytic change Straightening of cervical spine Cervical spondylosis Reviewed, dictated and finalized at [facility] Reviewed, dictated and finalized at [facility]. [employer] IMPRESSION: Prominent likely recent burst fracture of T1, very possibly pathol ogic, with suggestion of lytic change Straightening of cervical spine Cervical spondylosis
--- NOTE | ~2020-02-02 | CT_ITS ---
EXAMINATION: CT brain wo con DATE: 02/02/2020 13:37 INDICATION: Metastatic lung cancer TECHNIQUE: Computed tomography (CT) of the head was performed without intravenous contrast. The mA wa s adjusted according to patient size. Iterative reconstruction technique was employed. Exam dose: 60 5.33 mGy-cm total exam DLP. COMPARISON: None FINDINGS: No intracranial mass lesion or hemorrhage or cerebrovascular accident is detected. No midli ne shift or mass effects. No subdural or epidural hematoma. No orbital mass lesion is evident. There is mild soft tissue thickening of the ethmoid air cells and left frontal sinus, minimal soft ti ssue thickening of the right sphenoid sinus. No significant abnormality of the mastoid air cells. No fracture or bone destruction of the cranial vault is detected. IMPRESSION: No significant intracranial abnormality Reviewed, dictated and finalized at [facility]. Reviewed, dictated and finalized at [facility]. HEMISTRY TEACHER
--- NOTE | ~2020-02-02 | CT_ITS ---
EXAMINATION: CTA chest PE abdomen pel DATE: 02/02/2020 13:41 INDICATION: Shortness of breath. Metastases. TECHNIQUE: Computed tomography angiography (CTA) of the chest, abdomen and pelvis was performed with 100 mL Omnipaque-350 intravenous contrast timed to evaluate the pulmonary arteries. Coronal maximum i ntensity projection 3D-reconstructions were created by the technologist. Automated exposure control a nd iterative reconstruction technique were employed. Exam dose: 1292.02 mGy-cm total exam DLP. COMPARISON: 01/08/2020 CT chest 01/07/2020 CT abdomen pelvis 04/26/2017 MRI abdomen FINDINGS: CT chest: There is severe right superior paratracheal and pretracheal lymphadenopathy is moderately prominent r ight hilar and subcarinal lymphadenopathy.. Consistent with right hilar and mediastinal adenopathy se condary to a posterior segment irregular up to 2 cm right upper lobe lung mass, consistent with bronc hogenic carcinoma. Emphysematous changes are noted in addition to probable changes of usual interstitial pneumonia. Prominent calcified density in the right lower lobe, likely secondary to old pulmonary granulomatous disease. No pneumothorax. No pleural effusion. Cardiomegaly. No pericardial effusion. Coronary artery calcification. Pathologic burst fracture deformity of T1. Diffuse osteopenia. There is degenerative spurring of the thoracic spine. CT abdomen pelvis: There are numerous hepatic metastatic deposits involving left and right hepatic lobes, measuring up t o approximately 2.8 cm maximal dimension. Multiple small stones are noted in the dependent aspect of the gallbladder. No gallbladder wall thick ening or pericholecystic fluid or fat stranding. No bile duct dilatation. No pancreatic mass lesion or ductal dilatation. There are at least couple of subtle punctate calcific ations of the pancreas suggesting mild chronic pancreatitis. No splenic mass lesion. The spleen measu res up to approximately 12 cm, within upper limits of normal. Normal morphology of the adrenal glands. Multiple bilateral renal cysts. There is a multilocular partially calcified up to 4.2 x 5 x 7.9 cm cystic lesion of the right kidney. This measures up to 6.7 cm on 04/26/2017 MRI abdomen examination and was reported to have no solid en hancing component. Consider follow-up MR imaging as clinically appropriate. No urinary tract calculus or hydroureteronephrosis. There is prominent prostate enlargement, impressing the base of the urinary bladder. There is a Floyd catheter within the bladder lumen. There is very prominent thickening of the urinary bladder wall, l ikely related to chronic bladder outlet obstruction secondary to the prostatomegaly. There are numerous diverticula of the sigmoid colon; no CT evidence of diverticulitis. No bowel obstr uction, bowel wall thickening, pneumatosis or intraperitoneal free air. Small bilateral fat-containing inguinal hernias. There is calcification of the abdominal aorta, celiac, superior mesenteric and renal arteries as well as iliac arteries. No abdominal aortic aneurysm or dissection is evident. No intraperitoneal or retroperitoneal or pelvic mass lesion or adenopathy is noted otherwise evident. Degenerative changes of the thoracic and lumbar spine. There is degenerative change at the apophyseal joints in the lumbar and lumbosacral area with associated grade 1 anterolisthesis at L4-5. IMPRESSION: 2 cm right upper lobe posterior segment lung mass consistent with multiple echogenic carc inoma, with extensive right hilar and mediastinal lymphadenopathy COPD, usual interstitial pneumonia Cardiomegaly, coronary artery atherosclerosis Numerous hepatic metastases Cholelithiasis Bilateral renal cysts; up to 7.9 cm multilocular cystic lesion of right kidney with calcifications, p reviously reported measuring up to 6
--- NOTE | 2020-02-02 11:03 | ED.GENADULT ---
HPI - General Adult General Chief complaint: Extremity Injury, Upper Stated complaint: left arm pain and numbness x3 wks Time Seen by Provider: 02/02/20 10:40 Source: patient Mode of arrival: ambulatory Limitations: no limitations History of Present Illness HPI narrative: Patient is a 69-year-old male who presents with pain to the left upper extremity noting discomfort from the medial aspect of the elbow down into the fourth and fifth digits patient notes he has also had some mild stiffness of the neck symptoms of been present for 1 week denies injury trauma similar occurrence has not taken anything other than his home narcotics for relief Related Data Home Medications Medication Instructions Recorded Confirmed aspirin 81 mg tablet,delayed 81 mg PO DAILY 05/14/19 01/07/20 release multivitamin 1 tablet PO DAILY 05/14/19 01/07/20 blood-glucose meter #1 ea 01/24/20 Allergies Allergy/AdvReac Type Severity Reaction Status Date / Time varenicline Allergy Unknown unknown Verified 02/02/20 10:36 Review of Systems Review of Systems: All systems reviewed & are unremarkable except as noted in HPI and below PMFSH Past Medical History Medical History Cigarette nicotine dependence with nicotine-induced disorder HLD (hyperlipidemia) HTN (hypertension) Idiopathic pulmonary fibrosis ILD (interstitial lung disease) Type 2 diabetes mellitus Surgical History Surgical History Amputation of left index finger History of colonoscopy with polypectomy 2018 History of lumbar surgery Family History Family History Sibling Diabetes mellitus Sibling Cerebrovascular accident Sibling Cancer Social History Social History Social History: He has smoked up to 2 packs per day but over recent years has cut back to about 0.5 packs per day currently. He started smoking at the age of 19. He lives at home with his of over 20 years. He is independent in activities of daily living. Primary care provider: Nemo Abarca CAREER DEVELOPMENT FACILITATOR Code status: Full code Smoking packs per day: 0.75 Smoking cigarettes per day: 15.0 Years smoked: 49 Smoking pack-years: 36.75 Smoking status: Current every day smoker Tobacco type: cigarettes Second hand tobacco smoke exposure: No Alcohol intake: former Substance use: never Gender identity (if verbalized by the patient): Male Spiritual care concerns: No Exam Narrative: Exam Narrative: GENERAL: Well-appearing, well-nourished, and in no acute distress. HEAD: Normocephalic, atraumatic. EYES: PERRLA and EOMI. ENT: Nares clear, no rhinorrhea or epistaxis. Mucous membranes moist. NECK: Supple. No adenopathy or masses. No carotid bruits or JVD CHEST: Clear to auscultation. No respiratory distress. No wheezes rales or rhonchi HEART: Regular rate and rhythm. No murmur heard. Normal peripheral pulses. EXTREMITIES: Normal range of motion. No edema. Left paraspinal cervical tenderness no deformities noted no deformities of the left upper extremity SKIN: Warm, dry, no rash. NEURO: No focal deficits. Alert and oriented x3. Cranial nerves II through XII grossly intact. Normal speech. Motor and sensory intact and symmetrical in extremities. Capillary refill less than 2 seconds PSYCH: Normal mood and affect. Course Reevaluation(s) Reevaluation #1: Spoke with the neurosurgeon at [facility] who was agreed the patient should be transferred would like the patient to have rule out PE and then to be sent to the ER Dr Poole was the neuro surgeon I spoke with Date: 02/02/20 Reevaluation #2: Spoke with Dr. Moody in the emergency department who has agreed to accept the patient Date: 02/02/20 Consultations Consultation #1: Discussed case with Dr. Stone the oncologist dillon
[2020-02-02] MEDS: KETOROLAC (*BKC) 60 MG/2 ML VIAL 15 MG IM (11:04)
--- NOTE | 2020-02-02 12:16 | PC.NURSE ---
PT 02 SAT 88% ON ROOM AIR. 2L NASAL CANNULA APPLIED. PT TOLERATED WELL. 02 95% ON 2L N/C. PANTERA ROLDAN NOTIFIED.
[2020-02-02 12:22] LABS: Basophils Absolute Auto 0.1 K/mm3 (0.0-0.1); Basophils Percent Auto 0.7 % (0.2-1.2); Eosinophils Absolute Auto 0.1 K/mm3 (0-0.3); Eosinophils Percent Auto 1.1 % (0-4.4); Hematocrit 41.3 % (42.0-52.0); Hemoglobin 13.2 g/dL (14.0-18.0); Immature Granulocyte Absolute 0.03 K/mm3 (0.00-0.031); Immature Granulocyte Percent A 0.3 % (0-0.5); Lymphocytes Absolute Auto 1.26 K/mm3 (0.9-3.2); Lymphocytes Percent Auto 14.4 % (18.3-44.2); Mean Corpuscular Hemoglobin 27.8 pg (26-34); Mean Corpuscular Volume 87.1 fl (80-100); Mean Platelet Volume 9.8 fl (7.4-10.4); Monocytes Absolute Auto 0.5 K/mm3 (0.1-0.6); Monocytes Percent Auto 6.2 % (2.6-8.5); Neutrophils Absolute Auto 6.8 K/mm3 (1.3-6.7); Neutrophils Percent Auto 77.3 % (45.5-73.1); Platelet Count Result 256 k/mm3 (150-375); Red Blood Count 4.74 M/mm3 (4.6-6.20); Red Cell Distribution Width 14.8 % (11.5-14.5); White Blood Count 8.8 K/mm3 (4.5-10.0)
[2020-02-02 12:32] LABS: INR 1.1; Partial Thromboplastin Time 32.4 SECONDS (22.3-36.8); Prothrombin Time 14.3 Seconds (11.1-14.7)
[2020-02-02 12:34] LABS: Alanine Aminotransferase 14 U/L (4-50); Albumin Level 4.1 g/dL (3.5-5.1); Alkaline Phosphatase 76 U/L (38-126); Anion Gap 7 mmol/L (8-16); Aspartate Amino Transferase 28 U/L (17-59); Bilirubin,Total 0.6 mg/dL (0.2-1.3); Blood Urea Nitrogen 14 mg/dL (9-20); Calcium 9.6 mg/dL (8.4-10.2); Carbon Dioxide 32 mmol/L (22-30); Chloride 96 mmol/L (98-107); Estimated CRCL calculation 101 ml/min; Estimated Glomerular Filt Rate > 60; Glucose 175 mg/dL (75-110); Potassium 4.6 mmol/L (3.4-5.0); Sodium 135 mmol/L (137-145)
--- NOTE | 2020-02-02 12:48 | ECG_ITS ---
Measurements Intervals Sutter Rate: 107 P: 26 IN: 168 QRS: -33 QRSD: 143 T: -4 QT: 352 QTc: 470 Interpretive Statements SINUS TACHYCARDIA RIGHT BUNDLE BRANCH BLOCK BASELINE ARTIFACT- II, III, AVR, AVF, V4-V5 ABNORMAL ECG Electronically Signed On 02-02-2020 16:24:13 GUT CARRIER by Edu Lawson D.O.
[2020-02-02 13:06] LABS: Alveolar/Arterial O2 Gradient 87.6 mmHg; Base Excess ABG 2.8 mEq/l (+/-2.0); Carboxyhemoglobin 1.5 % THb (0-2.0); Fractional Inspired Oxygen 28 %; Methemoglobin ABG 0.1 %THb (0-1.5); Oxygen Saturation ABG 93.4 % (95.0-100.0); Oxyhemoglobin 91.5 % THb (90.0-100.0); PCO2 ABG 40.2 mmHg (35.0-45.0); PO2 ABG 64.6 mmHg (80.0-100.0); PO2 FiO2 Ratio Arterial Blood 2.31 %; Reduced Hemoglobin 6.9 %THb (0-5.0); Total Hemoglobin 13.2 g/dL (12.0-18.0); pH ABG 7.445 (7.350-7.450)
[2020-02-02 13:07] LABS: Device NASAL CANNULA; Site Drawn LEFT BRACHIAL
[2020-02-02] MEDS: MORPHINE SULFATE (*CRX) 4 MG/ML INJ IV PUSH (14:19)
== END 2020-02-02 16:46 | disposition short-term general hospital (02) ==
PROVIDERS: Emergency Medicine Emergency Medical Services; Emergency Provider Emergency Medicine; PCP Nurse Practitioner
DX: M84.48XA Pathological fracture, other site, initial encounter for fracture (principal); C78.7 Secondary malignant neoplasm of liver and intrahepatic bile duct; E78.5 Hyperlipidemia, unspecified; I10 Essential (primary) hypertension; J84.112 Idiopathic pulmonary fibrosis; J84.9 Interstitial pulmonary disease, unspecified; E11.9 Type 2 diabetes mellitus without complications; Z86.010 Personal history of colon polyps; F17.219 Nicotine dependence, cigarettes, with unspecified nicotine-induced disorders; Z89.022 Acquired absence of left finger(s); Z79.82 Long term (current) use of aspirin; M47.812 Spondylosis without myelopathy or radiculopathy, cervical region; J44.9 Chronic obstructive pulmonary disease, unspecified; I51.7 Cardiomegaly; I25.10 Atherosclerotic heart disease of native coronary artery without angina pectoris; K80.20 Calculus of gallbladder without cholecystitis without obstruction; N28.1 Cyst of kidney, acquired; N40.0 Benign prostatic hyperplasia without lower urinary tract symptoms; K57.30 Diverticulosis of large intestine without perforation or abscess without bleeding; R00.0 Tachycardia, unspecified; I45.10 Unspecified right bundle-branch block; R91.8 Other nonspecific abnormal finding of lung field; Z79.84 Long term (current) use of oral hypoglycemic drugs
CPT/HCPCS: 36415; 36600; 70450; 71275; 72125; 74177; 80053; 82375; 82805; 83050; 85025; 85610; 85730; 93005; 96372; 96374; 99285; J1885; J2270; Q9967